=== PATIENT | female | born 1970 | race Two or more races ===

== ENCOUNTER 2016-09-28 20:15 | Emergency (ER) | payer MEDICAID ==
[2016-09-28 20:32] VITALS: BP 105/75; PULSE 90; RESP 18; TEMP 97.7; O2SAT 95
--- NOTE | 2016-09-28 20:42 | EDPHY ---
H & P Time Seen by Provider: 09/28/16 20:33 HPI/ROS: CHIEF COMPLAINT: Fall with facial trauma HISTORY OF PRESENT ILLNESS: Patient says she was walking tonight on the street and lost her balance and fell striking her knees and right shoulder and face on the ground. No syncope, not dizzy or lightheaded, did not pass out, no seizure activity. She says she had "a tad" of alcohol tonight. She says she has mild right shoulder pain and bilateral knee pain but is otherwise feeling fine. No neck or back pain and no weakness or numbness in extremities. No headache. No nausea and no visual symptoms. REVIEW OF SYSTEMS: Eye: no change in vision, no double vision ENT: no sore throat Cardiac: no chest pain or syncope Pulmonary: no cough or SOB Abdomen: no vomiting, diarrhea, abdominal pain Musculoskeletal: no back pain or neck pain Skin: Abrasions Neuro: no headache Constitutional: no fever or recent illness : no urinary symptoms A comprehensive 10 point review of systems is otherwise negative aside from elements mentioned in the history of present illness. PAST MEDICAL HISTORY: Includes cirrhosis, history of alcoholism, hypertension. Exercise-induced asthma. Social history: Nonsmoker, alcohol as in HPI General Appearance: Alert and conversant, cooperative. Patient has fluent speech. Eyes: No scleral icterus. Pupils 3 mm reactive extraocular motion intact. ENT, Mouth: Normal mucous membranes. No hemotympanum, abrasion lateral to the right eye. Respiratory: Normal respiratory effort, breath sounds equal, lungs are clear to auscultation. Cardiovascular: Regular rate and rhythm. Gastrointestinal: Abdomen is soft and non tender. Neurological: Alert and oriented x3. Normally conversant. Face symmetric, normal movement and sensation in all extremities. Not tremulous, no pronator drift. Skin: Abrasion to the left wrist, both knees, right face. Musculoskeletal: No extremity deformity or point bony tenderness. No clavicular tenderness. No facial bony tenderness. No midline cervical thoracic or lumbar spine tenderness. Psychiatric: Not agitated. Emergency Department course/MDM: Patient admits to alcohol but appears clinically sober. Her pre-hospital glucose 114. Tetanus up-to-date. Wound care, cervical spine cleared clinically. Pickup by her father. 2100: Ambulatory not ataxic, steady gait. Abrasions cleaned. Stable for discharge. Smoking Status: Never smoked Constitutional: Initial Vital Signs Temperature (C) 36.5 C 09/28/16 20:15 Heart Rate 90 09/28/16 20:15 Respiratory Rate 18 09/28/16 20:15 Blood Pressure 105/75 09/28/16 20:15 O2 Sat (%) 95 09/28/16 20:15 O2 Delivery Mode Room Air Allergies/Adverse Reactions: No Known Allergies Allergy (Verified 09/28/16 20:35) Home Medications: Medication Instructions Recorded LORAZEPAM 09/28/16 MIRTAZAPINE 09/28/16 Pantoprazole Sodium 09/28/16 SUMAtriptan 09/28/16 Departure - Departure Disposition: Home, Routine, Self-Care Clinical Impression: Facial abrasion Qualifiers: Encounter type: initial encounter Qualified Code(s): S00.81XA - Abrasion of other part of head, initial encounter Head injury Qualifiers: Encounter type: initial encounter Qualified Code(s): S09.90XA - Unspecified injury of head, initial encounter Condition: Good Instructions: Head Injury (ED), Abrasion (ED) Referrals: Dr. Johnathon Boles [Other] - As per Instructions (Your doctor in [place].)
== END 2016-09-28 22:00 | disposition home or self-care (01) ==
LOC: EDUNIT#
DX: S09.90XA Unspecified injury of head, initial encounter (principal); S00.81XA Abrasion of other part of head, initial encounter; I10 Essential (primary) hypertension; J45.909 Unspecified asthma, uncomplicated; W01.198A Fall on same level from slipping, tripping and stumbling with subsequent striking against other object, initial encounter; Y99.8 Other external cause status; Y93.01 Activity, walking, marching and hiking

== ENCOUNTER 2016-11-22 15:02 | Emergency (ER) | payer MEDICAID ==
[2016-11-22] MEDS ORDERED: CARBAMIDE PEROXIDE 15 ML OTIC.BTL LEFTEAR ONE (15:22)
--- NOTE | 2016-11-22 15:22 | EDPHY ---
H & P Time Seen by Provider: 11/22/16 15:05 HPI/ROS: HPI Left ear clogged. 46-year-old female on foot. This patient complains of intermittent decreased hearing and a sensation of her left ear being clogged. This has been ongoing for 3 weeks. She also reports that it has been affecting her balance. She reports that she has had these symptoms before secondary to ear wax plugging her ear. ROS: Constitutional: No fever, no chills. No weakness. Eyes: No discharge. No changes in vision. ENT: No sore throat. No nasal congestion or rhinorrhea. As above. Respiratory: No cough. No shortness of breath. Cardiac: No chest pain, no palpitations. Gastrointestinal: No abdominal pain, no vomiting, no diarrhea. Musculoskeletal: No back pain. No neck pain. No myalgias or arthralgias. Skin: No rashes. Neurological: No headache. No focal weakness or altered sensation. As above. Past medical history: Alcoholism, cirrhosis, hypertension, exercise-induced asthma. Social history: Nonsmoker. Here by herself. As above. Physical Exam: General Appearance: Alert, no distress. This patient is responding to questions appropriately and in full sentences. This patient appears well- hydrated and well-nourished. Eyes: Pupils equal and round no pallor or injection. No lid edema, erythema or injection. Scleral icterus. ENT, Mouth: Mucous membranes are moist. The pharyngeal tissues are unremarkable. No edema or swelling. No asymmetry suggestive of abscess. No erythema or exudates. Right external auditory canal and tympanic membrane are unremarkable. Landmarks of tympanic membrane are clearly visible. Left external auditory canal is clogged by a large amount of brown cerumen. Neurological: Motor sensory function is grossly intact. Cranial nerves are normal. Gait is normal. Skin: Warm and dry, no rashes. Musculoskeletal: Neck is supple and nontender. Extremities are symmetrical. All joints range without pain or impingement. Psychiatric: No agitation. No depression. Database: EKG: Imaging: Procedures: Emergency department course: A my initial evaluation I removed some of the cerumen with a ear pick device. The left external auditory canal was then irrigated with copious amounts of normal saline. The remaining wax was removed. 4:30 p.m., patient re-evaluated. She is feeling much better. She has normal hearing from her left ear at this time. No balance issues. She was up and ambulatory with a normal gait. She states that she feels much better. Her tympanic membrane was visualized. There is likely a small amount of Endo lymph fluid behind the tympanic membrane. I discussed possible Meniere syndrome as a source of her vertigo, tinnitus and alteration of hearing. I will provide her with a referral to ENT for re-evaluation. At this time she is greatly relieved and thankful. She understands for follow-up in the reasoning for this. Return to emergency department precautions discussed with her. All of her questions were answered. She was discharged in good condition. Differential Diagnosis: The differential diagnosis on this patient includes but is not limited to impacted cerumen of left external auditory canal, Meniere syndrome. Cerebellar CVA, labyrinthitis, vestibular neuritis, otitis media, otitis externa unlikely. This represents a partial list of diagnoses considered. These considerations are based on history, physical exam, past history, reassessment and diagnostic testing. Smoking Status: Never smoked Constitutional: Initial Vital Signs Temperature (C) 36.7 C 11/22/16 15:08 Heart Rate 90 11/22/16 15:08 Respiratory Rate 14 11/22/16 15:08 Blood Pressure 99/68 L 11/22/16 15:08 O2 Sat (%) 99 11/22/16 15:08 O2 Delivery Mode Room Air Allergies/Adverse Reactions: No Known Allergies Allergy (Verified 11/22/16 15:18) Home Medications: Medication Instructions Recorded LORAZEPAM 09/28/16 MIRTAZAPINE 09/28/16 Pantoprazole Sodium 09/28/16 SUMAtriptan 09/28/16 Nadolol 11/22/16 Spironolactone 11/22/16 Medical Decision Making - Data Points Medications Given: Discontinued Medications Carbamide Peroxide (Debrox) 5 drop LEFTEAR EDNOW ONE Stop: 11/22/16 15:23 Last Admin: 11/22/16 16:19 Dose: 5 drops Departure - Departure Disposition: Home, Routine, Self-Care Clinical Impression: Impacted cerumen of left ear, Possible Meniere syndrome Condition: Good Instructions: Cerumen Impaction (ED) Additional Instructions: Read and follow provided instructions. Follow-up with your primary care physician in 2-3 days for re-evaluation and referral to an ENT clinic that except your insurance. I have also provided you a referral to Dr. Anderson who is a local ENT physician. You can call his office tomorrow for appointment time. Return to the emergency department for loss of hearing, difficulty with balance , fever, worsening symptoms or other serious concerns. Referrals: Doctor Not,On Staff, MD [Primary Care Provider] - As per Instructions Tylor Anderson MD [Medical Doctor] - As per Instructions
[2016-11-22] MEDS ORDERED: HYDROGEN PEROXIDE 236 ML BOTTLE TP ONE (15:44)
[2016-11-22 16:50] VITALS: BP 102/65; PULSE 62; RESP 18; TEMP 98.6; O2SAT 97
== END 2016-11-22 16:51 | disposition home or self-care (01) ==
LOC: CED 15:02
PROC: 3E1B78Z Irrigation of Ear using Irrigating Substance, Via Natural or Artificial Opening (ICD-10-PCS; principal; 2016-11-22)
DX: H61.22 Impacted cerumen, left ear (principal); I10 Essential (primary) hypertension; J45.909 Unspecified asthma, uncomplicated